=== PATIENT | male | born 1985 | race African-American/Black ===

== ENCOUNTER 2021-12-04 19:12 | Emergency (ER) | payer SELFPAY ==
--- OUTSIDE RECORDS SUMMARY | 2021-12-04 19:16 | XMS REPORT | Continuity of Care Document ---
:1985 Author Organization [facility] t Address [address] [place] [address] Care Team Providers Name Role Phone Salazar Solares NP Attending Clinician Salazar SOLARES Attending Clinician Unavailable Problems Condition Condition Condition Status Onset Resolution Last Treating Co mments Source Name Details Category Date Date Treatment Clinician Date No known No known Disease Unive rs active active ity of problems problems [facility] Allergies, Adverse Reactions, Alerts Allergy Allergy Status Severity Reaction(s) Onset Inactive Treating Comm ents Source Name Type Date Date Clinician NO KNOWN Drug Active Univers ALLERGIE Class ity of S [facility] Social History Social Habit Start Date Stop Date Quantity Comments Source [facility] to SARS-CoV-2 Not sure Un [facility] (event) [facility] Smoking Status Start Date Stop Date Source Unknown if ever smoked Universit y [facility] Medications Ordered Filled Start Stop Current Ordering Indication Dosage Frequency Signature Comments Components Source Medication Medication Date Date Medication? Clinician (SIG) Name Name sulfamethox Yes 1{tbl} 1 tablet, [facility] azole-trime 07-07 Oral, BID, [place] 02:00[place] 00 on [facility] DS) 800-160 07/06/20 [address] mg per 1999, tablet 1 Until tablet Discontinu ed, MELIDA
Re ason for Anti-Infec tive: Documented Infection< br>Documen clemencia Infection Site: Skin / Soft Tissue
Duration of Therapy: 7 days cephALEXin 2020- No 500mg 500 mg, Un patricio (KEFLEX) -24 07-06 Oral, ity of capsule 500 00:45: 23:49 [place] dose, [facility] 07/06/20 at Branch 1845, MELIDA
Re ason for Anti-Infec tive: Documented Infection< br>Documen clemencia Infection Site: Skin / Soft Tissue
Duration of Therapy: 7 days sulfamethox 2020- No [id number] 1{tbl} Take 1 Univers azole-trime 07-06 tablet by it y of thoprim 00:00: 05:59 mouth [place] 800-160 mg 00 :00 every 12 Medic al per tablet (twelve) Branc h hours for 10 days. cephALEXin 2020- No [id number] 500mg Take 1 Univers 500 mg 07-06 capsule by ity of capsule 00:00: 05:59 mouth 4 [place] 00 :00 (four) Medical times [place] daily for 10 days. Vital Signs Vital Name Observation Time Observation Value Comments Source Systolic blood 2020-07-06 22:50:00 130 mm[Hg] Univer sity of pressure [facility] Diastolic blood 2020-07-06 22:50:00 92 mm[Hg[facility] 2020-07-06 22:50:00 102 /min General acute hospital Body temperature 2020-07-06 22:50:00 36.94 [facility] Respiratory rate 2020-07-06 22:50:00 20 /min [facility] Body weight 2020-07-06 22:50:00 68.04 kg General acute hospital Oxygen saturation in 2020-07-06 22:50:00 98 /min [facility] Arterial blood by [facility] Pulse oximetry [place] Procedures Procedure Date / Time Performed Performing Clinician Sour e NOTICE OF PRIVACY 2020-07-06 22:45:28 Doctor Unassigned, [facility] CONSENT/REFUSAL FOR 2020-07-06 22:45:14 Doctor Unassigned, No [facility] AND Name Medical Branch TREATMENT Encounters Start End Encounter Admission Attending Care Care Encounter Source Date/Time Date/Time Type Type Clinicians Facility Department ID 2020-07-06 2020-07-06 Emergency [facility] [id number] [facility] 16:53:00 18:00:00 [employer] [facility] [id number] zahira jermaine Peguero [id number] [facility] [id number] [place] [address] Branch 2020-07-06 2020-07-06 Emergency X FLOWER SOLARES ERT [id number] Univers 16:53:00 16:53:[address] [facility] 2018-11-16 2018-11-16 Emergency E [facility] [id number] [facility] 05:56:00 05:56:00 2018-11-15 2018-11-15 Emergency E [facility] [id number] [facility] 20:49:00 20:49:00 2017-10-17 2017-10-17 Outpatient [facility] [id number] [address] [place] [address] 00:00:00 00:00:00 [facility] Office Results This patient has no known results.
[2021-12-04 20:20] LABS: Absolute Lymphocytes (CBC) 1.5 K/uL (0.7-4.9); Hematocrit 40.7 % (39.6-49.0); Lymphocytes % 24.1 % (15.3-44.8); MPV 7.2 fL (7.6-11.3); RBC Red Blood Cell Count 4.84 M/uL (4.33-5.43)
--- NOTE | 2021-12-04 20:34 | RAD REPORT ---
EXAM DESCRIPTION: RAD - Foot Right 3 View - 12/04/2021 8:23 pm CLINICAL HISTORY: PAIN COMPARISON: Chest Single View dated 12/04/2021 FINDINGS/IMPRESSION: No acute fracture. No malalignment. No significant focal degenerative changes.
--- NOTE | 2021-12-04 20:34 | RAD REPORT ---
EXAM DESCRIPTION: RAD - Chest Single View - 12/04/2021 8:23 pm CLINICAL HISTORY: CHEST PAIN COMPARISON: No comparisons FINDINGS: Lines: None. Lungs: No evidence of edema or pneumonia. Pleural: No significant pleural effusions or pneumothorax. Cardiac: The heart size is within normal limits. Bones: No acute fractures. Other: IMPRESSION: No acute cardiopulmonary disease.
[2021-12-04 20:39] LABS: ALT/SGPT 39 U/L (12-78); AST/SGOT 14 U/L (15-37); Albumin 3.6 g/dL (3.4-5.0); Alkaline Phosphatase 89 U/L (45-117); BUN Blood Urea Nitrogen 14 mg/dL (7-18); Bicarbonate 31 mmol/L (21-32); Bilirubin Total 0.2 mg/dL (0.2-1.0); Glomerular Filtration Rate 92 ml/min (=/>90); Glucose Level 78 mg/dL (74-106); Magnesium 2.4 mg/dL (1.8-2.4); Potassium 4.1 mmol/L (3.5-5.1); Protein, Total 7.2 g/dL (6.4-8.2); Sodium Level 141 mmol/L (136-145); Troponin High Sensitivity 4.3 pg/mL (<58.9)
[2021-12-04 20:45] LABS: Bilirubin Direct < 0.1 mg/dL (0-0.2)
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
[2021-12-04 21:53] VITALS: TEMP 98.7
[2021-12-04 21:58] VITALS: BP 122/78; O2SAT 96
--- NOTE | 2021-12-06 17:32 | EKG ---
Test Date: 2021-12-04 Test Time: 20:07:42 Jacket Changer: MEASUREMENT RESULTS: Intervals: Rate: 72 IN: 156 QRSD: 86 QT: 380 QTc: 416 [place]: P: 78 IN: 156 QRS: 86 T: 61 INTERPRETIVE STATEMENTS: Normal sinus rhythm with sinus arrhythmia Minimal voltage criteria for LVH, may be normal variant Borderline ECG No previous ECG available for comparison Electronically Signed On 12-06-21 17:29:24 CDT by Jaya Elias
== END 2021-12-04 21:21 | disposition home or self-care (01) ==
LOC: ER 19:12
DX: M72.2 Plantar fascial fibromatosis (principal); R07.9 Chest pain, unspecified
CPT/HCPCS: 36415; 71045; 80048; 80076; 83735; 84484; 85025; 93005; 99284